=== PATIENT | male | born 1980 | race Caucasian/White ===

== ENCOUNTER 2020-06-07 01:43 | Emergency (ER) | payer OTHER ==
[2020-06-07] MEDS ORDERED: HYDROcodone/ACETAMINOPHEN 10-325MG TAB PO ONE (02:37)
--- NOTE | 2020-06-07 03:25 | XRay Report ---
LEFT ANKLE 3 VIEW(S) INDICATION / CLINICAL INFORMATION: left ankle pain and swelling COMPARISON: None available. FINDINGS: BONES / JOINT(S): No acute fracture or subluxation. No significant arthritis. SOFT TISSUES: No significant abnormality. ADDITIONAL FINDINGS: None. Signer Name: Sourav Thomas MD Signed: 06/07/2020 3:21 AM Workstation Name: [id number]
--- NOTE | 2020-06-07 03:25 | XRay Report ---
LEFT FOOT 3 VIEW(S) INDICATION / CLINICAL INFORMATION: injury COMPARISON: None available. FINDINGS: BONES / JOINT(S): Acute mildly displaced intra-articular fracture distal aspect fifth toe proximal ph alanx extending into PIP joint No significant arthritis. SOFT TISSUES: Moderate dorsal soft tissue swelling ADDITIONAL FINDINGS: None. Signer Name: Sourav Thomas MD Signed: 06/07/2020 3:20 AM Workstation Name: [id number]
--- NOTE | 2020-06-07 04:55 | Emergency Department Report ---
ED Lower Extremity HPI - General Chief Complaint: Extremity Injury, Lower Stated Complaint: LT FOOT INJURY Time Seen by Provider: 06/07/20 02:34 Source: patient Mode of arrival: Wheelchair Limitations: Language Barrier - History of Present Illness Initial Comments: This is a 40-year-old male nontoxic, well nourished in appearance, no acute signs of distress presents to the ED with c/o of left foot pain 1 day. Patient stated that while he was walking hit his foot. Patient denies any other trauma or injuries. Patient denies any numbness, tingling, fever, chills, nausea, vomiting, chest pain, shortness of breath, headache, stiff neck. Patient denies any joint swelling or joint redness. Patient denies decreased range of motion. Patient stated has decreased gait due to pain. Patient denies any allergies or significant past medical history. Yemeni translation has been used throughout the ED stay, physical exam and discharge instructions. MD Complaint: foot injury -: days(s) Injury: Foot: Left Severity: mild Severity scale (0 -10): 8 Improves With: immobilization Worsens With: weight bearing, movement, palpation Context: direct blow Associated Symptoms: swelling, able to partially bear weight. denies: snap/pop sensation, numbness, tingling, unable to bear weight - Related Data Previous Rx's Medication Instructions Recorded Last Taken Type Naproxen 500 mg PO Q12H PRN #20 tablet 06/07/20 Unknown Rx Allergies Allergy/AdvReac Type Severity Reaction Status Date / Time No Known Allergies Allergy Unverified 06/07/20 02:15 ED Review of Systems ROS: Stated complaint: LT FOOT INJURY Other details as noted in HPI Comment: All other systems reviewed and negative Constitutional: denies: chills, fever Eyes: denies: eye pain, eye discharge, vision change ENT: denies: ear pain, throat pain Respiratory: denies: cough, shortness of breath, wheezing Cardiovascular: denies: chest pain, palpitations Endocrine: no symptoms reported Gastrointestinal: denies: abdominal pain, nausea, diarrhea Genitourinary: denies: urgency, dysuria Musculoskeletal: denies: back pain, joint swelling, arthralgia Skin: denies: rash, lesions Neurological: denies: headache, weakness, paresthesias Psychiatric: denies: anxiety, depression Hematological/Lymphatic: denies: easy bleeding, easy bruising ED Past Medical Hx - Past Medical History Previous Medical History?: Yes - Surgical History Past Surgical History?: Yes - Social History Smoking Status: Never Smoker Substance Use Type: None - Medications Home Medications: Home Medications Medication Instructions Recorded Confirmed Last Taken Type Naproxen 500 mg PO Q12H PRN #20 tablet 06/07/20 Unknown Rx ED Physical Exam - General Limitations: Language Barrier General appearance: alert, in no apparent distress - Head Head exam: Present: atraumatic, normocephalic - Eye Eye exam: Present: normal appearance - Neck Neck exam: Present: normal inspection, full ROM - Respiratory Respiratory exam: Absent: respiratory distress - Cardiovascular Cardiovascular Exam: Present: regular rate - Extremities Exam Extremities exam: Present: normal inspection, full ROM, tenderness, normal capillary refill, pedal edema. Absent: joint swelling, calf tenderness - Expanded Lower Extremity Exam Left Hip exam: Present: normal inspection, full ROM. Absent: tenderness, swelling Upper Leg exam: Present: normal inspection, full ROM. Absent: tenderness, swelling Knee exam: Present: normal inspection, full ROM. Absent: tenderness, swelling Lower Leg exam: Present: normal inspection, full ROM. Absent: tenderness, swelling Ankle exam: Present: normal inspection, full ROM. Absent: tenderness, swelling, abrasion, laceration, ecchymosis, deformity, crepidus, dislocation, erythema, anterior draw sign Foot/Toe exam: Present: full ROM, tenderness, swelling, ecchymosis. Absent: abrasion, laceration, deformity, crepidus, dislocation, erythema, amputation, puncture wound, foreign body, calcaneal tenderness, tenderness at base of 5th metatarsal, nail avulsion, subungual hematoma Neuro vascular tendon exam: Present: no vascular compromise Gait: Positive: observed and limited by pain - Back Exam Back exam: Present: normal inspection, full ROM - Neurological Exam Neurological exam: Present: alert, oriented X3 - Psychiatric Psychiatric exam: Present: normal affect, normal mood - Skin Skin exam: Present: warm, dry, intact, normal color. Absent: rash ED Course Vital Signs 06/07/20 06/07/20 02:17 03:20 Temperature 97.5 F L 97.5 F L Pulse Rate 99 H 99 H Respiratory 18 18 Rate Blood Pressure 135/95 Blood Pressure 135/95 [Right] O2 Sat by Pulse 97 100 Oximetry - Reevaluation(s) Reevaluation #1: 06/07/20 04:56 Patient is speaking in full sentences with no signs of distress noted. ED Lower Extremity MDM - Radiology Data [address] [address] XRay Report Signed Patient: JOHANA TIWARI MR#: [id number] : 1980 Acct:[id number] Age/Sex: 40 / M ADM Date: 06/07/20 Loc: ED Attending Dr: Ordering Physician: ALYSSA HEBERT NP Date of Service: 06/07/20 Procedure(s): XR foot 3+V LT Accession Number(s): [id number] cc: ALYSSA HEBERT NP Fluoro Time In Minutes: LEFT FOOT 3 VIEW(S) INDICATION / CLINICAL INFORMATION: injury COMPARISON: None available. FINDINGS: BONES / JOINT(S): Acute mildly displaced intra-articular fracture distal aspect fifth toe proximal phalanx extending into PIP joint No significant arthritis. SOFT TISSUES: Moderate dorsal soft tissue swelling ADDITIONAL FINDINGS: None. Signer Name: Sourav Thomas MD Signed: 06/07/2020 3:20 AM Workstation Name: [id number] Transcribed By: TL Dictated By: Sourav Thomas MD Electronically Authenticated By: Sourav Thomas MD Signed Date/Time: 06/07/20319 DD/ 9 TD/TT: [address] [address] XRay Report Signed Patient: JOHANA TIWARI MR#: [id number] : 1980 Acct:[id number] Age/Sex: 40 / M ADM Date: 06/07/20 Loc: ED Attending Dr: Ordering Physician: ALYSSA HEBERT NP Date of Service: 06/07/20 Procedure(s): XR ankle 3+V LT Accession Number(s): [id number] cc: ALYSSA HEBERT NP Fluoro Time In Minutes: LEFT ANKLE 3 VIEW(S) INDICATION / CLINICAL INFORMATION: left ankle pain and swelling COMPARISON: None available. FINDINGS: BONES / JOINT(S): No acute fracture or subluxation. No significant arthritis. SOFT TISSUES: No significant abnormality. ADDITIONAL FINDINGS: None. Signer Name: Sourav Thomas MD Signed: 06/07/2020 3:21 AM Workstation Name: [id number] Transcribed By: TL Dictated By: Sourav Thomas MD Electronically Authenticated By: Sourav Thomas MD Signed Date/Time: 06/07/20320 DD/ 0 TD/TT: - Medical Decision Making This is a 40-year-old male that presents with left foot fracture. Patient is stable and was examined by me. I referred patient to an orthopedic doctor for further evaluation for possible MRI. X-ray has been obtained and dictated by the radiologist. Patient is notified of the x-ray report with noted by the patient. Patient received a marco splint for fourth and fifth toe. Patient also received a postop surgical shoe. Patient was instructed to RICE therapy. Patient received [place] for pain stated that family will drive patient home after discharge due to possible drowsiness. Patient is discharged with naproxen. At time of discharge, the patient does not seem toxic or ill in appearance. No acute signs of distress noted. Patient agrees to discharge treatment plan of care. No further questions noted by the patient. Yemeni translation has been used by the whole ED visit, education, physical exam and discharge instructions. Critical care attestation.: If time is entered above; I have spent that time in minutes in the direct care of this critically ill patient, excluding procedure time. ED Disposition Clinical Impression: Foot fracture, left Qualifiers: Encounter type: initial encounter Fracture type: closed Qualified Code(s): S92.902A - Unspecified fracture of left foot, initial encounter for closed fracture Disposition: - TO HOME OR SELFCARE Is pt being admited?: No Does the pt Need Aspirin: No Condition: Stable Instructions: RICE Therapy for Routine Care of Injuries, [facility] Additional Instructions: Follow-up with a orthopedic doctor in 3-5 days or if symptoms worsen and continue return to emergency room as soon as possible. No physical activity or weight bearing that extremity until cleared by orthopedic doctor Prescriptions: Naproxen 500 mg PO Q12H PRN #20 tablet PRN Reason: Pain , Severe (7-10) Referrals: ALEXIA RABAGO MD [Primary Care Provider] - 3-5 Days REY CARCAMO MD [Staff Physician] - 3-5 Days Time of Disposition: 05:02
[2020-06-07 19:06] VITALS: BP 120/84
== END 2020-06-07 05:49 | disposition home or self-care (01) ==
LOC: ED 01:43
DX: S92.812A Other fracture of left foot, initial encounter for closed fracture (principal); Z79.899 Other long term (current) drug therapy; X58.XXXA Exposure to other specified factors, initial encounter; Y93.89 Activity, other specified; Y92.89 Other specified places as the place of occurrence of the external cause; Y99.8 Other external cause status
CPT/HCPCS: 99283